=== PATIENT | female | born 1995 | race Caucasian/White ===

== ENCOUNTER 2017-10-24 07:07 | Inpatient (IN) | payer OTHER ==
[2017-10-24] MEDS: LACTATED RINGER'S 1000 ML IV (08:05)
[2017-10-24] MEDS ORDERED: LR 1,000 ML IV (08:05)
[2017-10-24] MEDS: PRENATAL VITAMINS CHEWABLE TABLET PO (09:00)
[2017-10-24] MEDS: DOCUSATE SODIUM 100 MG CAP PO ×2 (09:00→21:45)
[2017-10-24 09:20] LABS: HEMATOCRIT 37.9 % (36.0-47.0); HEMOGLOBIN 12.6 g/dl (12.0-15.5); MEAN CORPUSCULAR HGB CONC 33.2 g/dl (32.0-36.5); MEAN CORPUSCULAR VOLUME 87.1 fl (80.0-96.0); PLATELET COUNT, AUTOMATED 228 10^3/uL (150-450); RED BLOOD COUNT 4.35 10^6/uL (4.00-5.40); RED CELL DISTRIBUTION WIDTH 14.4 % (11.5-14.5); WHITE BLOOD COUNT 8.5 10^3/uL (4.0-10.0)
[2017-10-24] MEDS ORDERED: OXYTOCIN 30 UNITS IN 0.9% NaCl 500ML IV BAG (J2590) As Ordered (11:11)
[2017-10-24] MEDS ORDERED: IBUPROFEN 800 MG TAB PO (11:45)
[2017-10-24] MEDS ORDERED: DIBUCAINE 1% OINTMENT 30GM TOP (11:45)
[2017-10-24] MEDS ORDERED: ACETAMINOPHEN TAB 650MG DOSE (2X325MG) PO (11:45)
[2017-10-24] MEDS ORDERED: METHYLERGONOVINE MALEATE 0.2 MG TAB PO (11:45)
[2017-10-24] MEDS ORDERED: METOCLOPRAMIDE INJ 10MG/2ML VIAL (J2765) IV (11:45)
[2017-10-24] MEDS ORDERED: UNASYN 3 GM VIAL As Ordered (14:36)
[2017-10-24] MEDS ORDERED: METHYLERGONOVINE MALEATE 0.2 MG/ML VIAL (J2210) As Ordered (14:37)
[2017-10-24] MEDS: METHYLERGONOVINE MALEATE 0.2 MG/ML VIAL (J2210) IM (14:59)
[2017-10-24] MEDS: AMPICILLIN SOD/SULBACTAM SOD 3 GM in D5W MINI-BAG PLUS 100 ML IV (15:00)
[2017-10-24] MEDS: OXYTOCIN DRIP 30 UNITS in APPROPRIATE DILUENT 1 EA IV (15:00)
[2017-10-24] MEDS: MEASLES,MUMPS,RUBELLA VACCINE INJ (MMR-II) (90707) SC (16:50)
[2017-10-24] MEDS: RHOGAM 300 MCG (1500 IU) INJ (J2790) IM (16:50)
[2017-10-24] MEDS: METHYLERGONOVINE MALEATE 0.2 MG TAB PO ×2 (18:50→23:40)
[2017-10-24 19:10] LABS: HEMATOCRIT 34.1 % (36.0-47.0); HEMOGLOBIN 11.4 g/dl (12.0-15.5); MEAN CORPUSCULAR HEMOGLOBIN 28.7 pg (27.0-33.0); MEAN CORPUSCULAR HGB CONC 33.4 g/dl (32.0-36.5); MEAN CORPUSCULAR VOLUME 85.9 fl (80.0-96.0); PLATELET COUNT, AUTOMATED 198 10^3/uL (150-450); RED BLOOD COUNT 3.97 10^6/uL (4.00-5.40); RED CELL DISTRIBUTION WIDTH 14.6 % (11.5-14.5); WHITE BLOOD COUNT 12.3 10^3/uL (4.0-10.0)
[2017-10-25] MEDS: METHYLERGONOVINE MALEATE 0.2 MG TAB PO ×3 (03:00→10:59)
[2017-10-25 06:39] LABS: HEMATOCRIT 33.7 % (36.0-47.0); HEMOGLOBIN 11.1 g/dl (12.0-15.5); MEAN CORPUSCULAR HEMOGLOBIN 28.7 pg (27.0-33.0); MEAN CORPUSCULAR HGB CONC 32.9 g/dl (32.0-36.5); MEAN CORPUSCULAR VOLUME 87.1 fl (80.0-96.0); PLATELET COUNT, AUTOMATED 200 10^3/uL (150-450); RED BLOOD COUNT 3.87 10^6/uL (4.00-5.40); RED CELL DISTRIBUTION WIDTH 14.5 % (11.5-14.5); WHITE BLOOD COUNT 10.4 10^3/uL (4.0-10.0)
[2017-10-25] MEDS: PRENATAL VITAMINS CHEWABLE TABLET PO (10:23)
[2017-10-25] MEDS: DOCUSATE SODIUM 100 MG CAP PO (10:23)
== END 2017-10-25 18:40 | disposition home or self-care (01) | DRG 774 ==
LOC: M LDO 07:07 → M LDI 08:07 → M OBS 17:02
PROVIDERS: Obstetrics & Gynecology
PROC: 10E0XZZ Delivery of Products of Conception, External Approach (ICD-10-PCS; principal; 2017-10-24)
PROC: 10907ZC Drainage of Amniotic Fluid, Therapeutic from Products of Conception, Via Natural or Artificial Opening (ICD-10-PCS; 2017-10-24)
DX: O48.0 Post-term pregnancy (principal); O72.1 Other immediate postpartum hemorrhage; O71.7 Obstetric hematoma of pelvis; Z37.0 Single live birth; Z3A.40 40 weeks gestation of pregnancy; O36.63X0 Maternal care for excessive fetal growth, third trimester, not applicable or unspecified

== ENCOUNTER → 2018-03-15 | Outpatient (REF) | payer OTHER | LOC: M SFHCLERA 13:57 | DX: R30.0 Dysuria (principal) ==

== ENCOUNTER → 2019-03-19 | Outpatient (REF) | payer OTHER ==
[~2019-03-19] MED LIST: COLA100C5 PO; MOTR200T44 PO; PRENTAB9 PO; TUMS500C PO; TYLE325T5 PO
== END ==
LOC: M SFHCLERA 11:35
PROVIDERS: ATTEND Physician Assistant
DX: J02.9 Acute pharyngitis, unspecified (principal)